=== PATIENT | female | born 1980 | race Caucasian/White ===

== ENCOUNTER 2017-08-25 11:20 | Inpatient (IN) | payer OTHER ==
[~2017-08-25] VITALS: Ht 160 cm; Wt 69.9 kg
[2017-08-25 12:20] VITALS: BP 110/71
[2017-08-25] MEDS ORDERED: RINGERS SOLUTION,LACTATED 1,000 ML IV PRN (15:09)
[2017-08-25] MEDS ORDERED: METOCLOPRAMIDE HCL 5 MG/ML 2 ML VIAL IVP PRN (15:15)
[2017-08-25] MEDS ORDERED: CITRIC ACID/SODIUM CITRATE 30 ML SOLUTION UDCUP PO PRN (15:15)
[2017-08-25 15:45] LABS: BASOPHILS % (AUTO) 0.2 % (0.0-2.0); EOSINOPHILS % (AUTO) 1.2 % (1.0-6.0); HEMOGLOBIN 13.7 g/dL (12.0-16.0); LYMPHOCYTES # (AUTO) 1.6 K/uL (1.0-4.8); LYMPHOCYTES % (AUTO) 16.1 % (22.0-44.0); MEAN CORPUSCULAR HEMOGLOBIN 33.1 pg (26.0-34.0); MEAN CORPUSCULAR HGB CONC 36.3 G/dL (31.0-37.0); MEAN CORPUSCULAR VOLUME 91 fL (80-100); MONOCYTES # (AUTO) 0.8 K/uL (0.1-1.0); MONOCYTES % (AUTO) 8.3 % (2.0-9.0); NEUTROPHILS # (AUTO) 7.3 K/uL (1.8-7.7); NEUTROPHILS % (AUTO) 74.2 % (40.0-70.0); PLATELET COUNT (AUTO)-OB 249 K/uL (150-450); RED BLOOD CELL COUNT(AUTO) 4.14 MIL/uL (4.00-5.20); RED CELL DISTRIBUTION WIDTH 13.4 % (11.5-14.5)
[2017-08-25] MEDS: RINGERS SOLUTION,LACTATED 1,000 ML IV SCH ×4 (18:30→22:45)
[2017-08-25] MEDS ORDERED: OXYGEN THERAPY IH SCH (20:00)
[2017-08-25] MEDS: FentaNYL CITRATE-PF 100 MCG/2 ML VIAL IVP PRN ×4 (20:15→22:42)
[2017-08-26] MEDS ORDERED: BUTORPHANOL TARTRATE 2 MG/ML VIAL IVP ONE ×2 (01:30→02:30)
[2017-08-26] MEDS: FentaNYL CITRATE-PF 100 MCG/2 ML VIAL IVP PRN ×3 (04:36→07:34)
[2017-08-26] MEDS: RINGERS SOLUTION,LACTATED 1,000 ML IV SCH (05:06)
[2017-08-26] MEDS ORDERED: FentaNYL CITRATE-PF 100 MCG/2 ML VIAL ONE ×2 (07:02→09:17)
[2017-08-26] MEDS ORDERED: CeFAZolin 2 GM/DEXTROSE 50 ML IV ONE (07:02)
[2017-08-26] MEDS ORDERED: MORPHINE SULFATE/PF 1 MG/ML 10 ML AMP ONE (07:03)
[2017-08-26] MEDS ORDERED: FentaNYL CITRATE-PF 100 MCG/2 ML VIAL IVP PRN ×6 (08:45)
[2017-08-26] MEDS ORDERED: NALBUPHINE HCL 10 MG/ML VIAL IVP PRN (08:45)
[2017-08-26] MEDS ORDERED: NALOXONE HCL 0.4 MG/ML VIAL IVP PRN (08:45)
[2017-08-26] MEDS ORDERED: DEXAMETHASONE SOD PHOS 4 MG/ML VIAL IVP PRN (08:45)
[2017-08-26] MEDS ORDERED: ONDANSETRON HCL 4 MG/2 ML VIAL IVP PRN ×2 (08:45)
[2017-08-26] MEDS ORDERED: MEPERIDINE HCL/PF 25 MG/0.5 ML AMP IVP PRN (08:45)
[2017-08-26] MEDS ORDERED: DiphenhydrAMINE HCL 50 MG/ML VIAL IVP PRN ×2 (08:45)
[2017-08-26] MEDS ORDERED: ACETAMINOPHEN/CODEINE 300-30 MG TABLET PO PRN (09:30)
[2017-08-26] MEDS ORDERED: LANOLIN 7 GM OINTMENT TP PRN (09:30)
[2017-08-26] MEDS: DEXTROSE 5%-0.45% SODIUM CHL 1,000 ML IV SCH ×3 (12:08→21:23)
[2017-08-26] MEDS: NALBUPHINE HCL 10 MG/ML VIAL IVP SCH ×3 (12:09→23:43)
[2017-08-26] MEDS: ACETAMINOPHEN 1000 MG/ISO-OSM 100 ML IV SCH ×2 (15:55→23:48)
[2017-08-27] MEDS: DEXTROSE 5%-0.45% SODIUM CHL 1,000 ML IV SCH (01:44)
[2017-08-27] MEDS: NALBUPHINE HCL 10 MG/ML VIAL IVP SCH (05:40)
[2017-08-27] MEDS ORDERED: EPHEDrine SULFATE 50 MG/ML VIAL IM ONE (05:40)
[2017-08-27] MEDS ORDERED: ONDANSETRON HCL 4 MG/2 ML VIAL IVP ONE (05:40)
[2017-08-27] MEDS ORDERED: OXYTOCIN 10 UNITS/ML VIAL IM ONE (05:40)
[2017-08-27] MEDS ORDERED: LIDOCAINE HCL/PF 2% 5 ML VIAL IM ONE (05:40)
[2017-08-27] MEDS ORDERED: DEXAMETHASONE SOD PHOS 4 MG/ML VIAL IVP ONE (05:40)
[2017-08-27] MEDS: IBUPROFEN 800 MG TABLET PO SCH ×3 (07:38→20:45)
[2017-08-27] MEDS: MAGNESIUM HYDROXIDE SUSPENSION 30 ML UDCUP PO SCH ×2 (07:39→22:59)
[2017-08-28] MEDS: ACETAMINOPHEN/CODEINE 300-30 MG TABLET PO PRN ×2 (00:12→04:52)
[2017-08-28] MEDS: IBUPROFEN 800 MG TABLET PO SCH ×4 (03:40→23:36)
[2017-08-28] MEDS: MAGNESIUM HYDROXIDE SUSPENSION 30 ML UDCUP PO SCH (21:47)
[2017-08-29] MEDS: IBUPROFEN 800 MG TABLET PO SCH ×2 (05:52→12:31)
[2017-08-29] MEDS ORDERED: BISACODYL 10 MG RECTAL RECTAL SUPPOSITORY PR ONE (08:45)
[2017-08-29] MEDS ORDERED: ACET1TAB12 PO (09:31)
[2017-08-29] MEDS ORDERED: DSS100 PO (09:32)
[2017-08-29] MEDS ORDERED: IBUP-2070 PO (09:32)
[2017-08-29] MEDS: MAGNESIUM HYDROXIDE SUSPENSION 30 ML UDCUP PO SCH ×2 (09:43→12:31)
== END 2017-08-29 13:55 | disposition home or self-care (01) | DRG 766 ==
LOC: OBSVTOIN 11:20 → 4S 11:20
PROVIDERS: ADMIT Obstetrics & Gynecology; ATTEND Obstetrics & Gynecology
PROC: 10D00Z1 Extraction of Products of Conception, Low, Open Approach (ICD-10-PCS; principal; 2017-08-26)
PROC: 0UB70ZZ Excision of Bilateral Fallopian Tubes, Open Approach (ICD-10-PCS; 2017-08-26)
DX: O76 Abnormality in fetal heart rate and rhythm complicating labor and delivery (principal); O34.219 Maternal care for unspecified type scar from previous cesarean delivery; Z37.0 Single live birth; Z3A.38 38 weeks gestation of pregnancy; Z30.2 Encounter for sterilization
CPT/HCPCS: 76805; 86850; 86900; 86901; 88302; J0131; J0595; J0690; J1100; J2300; J2405; J2590; J2765; J3010; J3490; J7120